=== PATIENT | female | born 1970 | race Caucasian/White ===

== ENCOUNTER 2017-07-08 08:35 | Day surgery (SDC) | payer MEDICAID ==
[2017-07-08] MEDS ORDERED: Midazolam 2 MG/2 ML VIAL ONE (10:32)
[2017-07-08] MEDS ORDERED: Propofol 10 mg/ml Inj (20 ML) ONE (10:32)
[2017-07-08] MEDS ORDERED: Lidocaine Hydrochloride 5 ML INJ ONE (10:33)
[2017-07-08] MEDS ORDERED: Oxycodone/Acetaminophen 5/325 mg Tab PO PRN (11:35)
[2017-07-08] MEDS ORDERED: Lactated Ringer's 1,000 ML IV ONE (12:30)
[2017-07-08 12:38] VITALS: O2SAT 100
[2017-07-08 13:13] VITALS: PULSE 81; RESP 16
--- NOTE | 2017-07-08 14:20 | OP ---
PROCEDURE DATE: 07/08/2017 PREOPERATIVE DIAGNOSIS: Menometrorrhagia. POSTOPERATIVE DIAGNOSIS: Menometrorrhagia. PROCEDURE: Hysteroscopy and fractional dilatation and curettage and cervical punch biopsy. SURGEON: Jennifer Polanco MD. TYPE OF ANESTHESIA: General. ANESTHESIA ADMINISTERED BY: Dr. Townsend. FINDINGS: Operative findings as follows; cervix is firm and closed and with signs of chronic cervicitis. Erosion noted in both anterior and posterior cervical lips. The uterus is slightly large, anteriorly located. Adnexa negative with moderate vaginal bleeding where the anterior and posterior surface of the endometrial cavity. OPRATIVE TECHNIQUE: The patient was prepped and draped in the usual sterile manner under lithotomy position. Internal examination was performed. Anterior and posterior vaginal retractors were applied. The uterus was sounded to 3 inches in depth and with Hegar dilators, internal and external cervical os were dilated. With a medium-sized hysteroscope and we did Ringer's lactate solution as the distension medium used, the endocervical canal was visualized and thereby the instruments introduced gently into the endometrial cavity thereby visualizing the endometrial cavity. Multiple polypoid tissues noted over the anterior and posterior surface of the uterus and with signs of bleeding and after thorough visualization, the endometrial cavity as well as the ostia of both fallopian tubes were noted and the hysteroscope was removed and fractional dilatation and curettage was performed obtaining minimal amount of endocervical tissues and minimal amount of endometrial tissues. A four-quadrant biopsy of the cervix was performed and the biopsied sites were cauterized with an electrocautery. After establishing hemostasis, anterior and posterior vaginal retractors were removed. The patient was transferred to recovery room in stable condition. Estimated blood loss around 15 mL. Specimens consisted of biopsy of the cervix and endocervical and endometrial curettings were sent to the laboratory for a histopathological examination. Jennifer Polanco MD
[2017-07-08 15:12] VITALS: BP 103/52; TEMP 97.6
== END 2017-07-08 14:05 | disposition home or self-care (01) ==
LOC: C.SDS 08:35
PROVIDERS: ATTEND Obstetrics & Gynecology
DX: N92.1 Excessive and frequent menstruation with irregular cycle (principal)
CPT/HCPCS: 58558; J1100; J2250; J2405; J2704; J3010; J7120